=== PATIENT | female | born 1940 | race Caucasian/White ===

== ENCOUNTER 2024-04-06 12:44 | Emergency (ER) | payer MEDICARE ==
[~2024-04-06] VITALS: Ht 154.9 cm; Wt 65.9 kg
[2024-04-06 12:57] VITALS: TEMP 98.1
[2024-04-06 13:29] LABS: BASO # 0.1 K/mm3 (0.0-0.2); BASO % 0.4 % (0.0-2.0); EOS # 0.4 K/mm3 (0.0-0.7); EOS % 2.5 % (0.0-4.0); GRAN # 10.9 K/mm3 (1.4-6.5); GRAN % 77.5 % (42.2-75.2); HEMATOCRIT 38.3 % (37.0-47.0); HEMOGLOBIN 12.2 g/dl (12.5-16.0); LYMPH # 1.4 K/mm3 (1.2-3.4); LYMPH % 10.1 % (20.0-51.0); MEAN CELL VOLUME 93 fl (80.0-100.0); MEAN CORPUSCULAR HEMOGLOBIN 30 pg (27-31); MEAN CORPUSCULAR HGB CONC 32 g/dl (33.0-37.0); MEAN PLATELET VOLUME 10.7 fl (7.4-10.4); MONO # 1.3 K/mm3 (0.1-0.6); MONO % 8.9 % (1.7-9.3); PLATELET COUNT 300 K/mm3 (130-400); RED BLOOD COUNT 4.13 M/mm3 (4.10-5.30); REDCELL DISTRIBUTION WIDTH-CV 14.2 % (11.5-14.5)
[2024-04-06] MEDS ORDERED: Budesonide Neb Susp 0.5 MG/2 ML AMP IH ONE (13:30)
[2024-04-06] MEDS ORDERED: Albuterol/Ipratropium 3 MG-0.5 MG/3 ML Neb Soln IH ONE (13:30)
[2024-04-06] MEDS ORDERED: methylPREDNISolone Sod Succ 125 MG/2 ML VIAL IV ONE (13:30)
[2024-04-06 13:45] LABS: ALBUMIN 3.6 g/dL (3.4-4.8); BILIRUBIN,TOTAL 0.4 mg/dL (0.2-1.2); CALCIUM 9.9 mg/dL (8.4-10.2); CREATININE, serum 1.14 mg/dL (0.57-1.11); POTASSIUM 4.4 mEq/L (3.5-4.5); TOTAL PROTEIN 7.1 g/dl (6.2-8.1)
[2024-04-06 13:51] LABS: TROPONIN-I 0.014 ng/mL (0.00-0.033)
[2024-04-06 15:43] LABS: COLLECTION METHOD CLEAN CATCH
[2024-04-06 15:52] LABS: PH 7.5 (5.0-8.5); URINE APPEARANCE CLEAR (CLEAR/HAZY); URINE BLOOD NEGATIVE (NEGATIVE); URINE COLOR YELLOW (YELLOW); URINE GLUCOSE NEGATIVE (NEGATIVE); URINE KETONE NEGATIVE (NEGATIVE); URINE NITRATE NEGATIVE (NEGATIVE); URINE PROTEIN(semi-quant) NEGATIVE (NEGATIVE); URINE UROBILINOGEN 0.2 E.U/dL (0.2-1.0)
[2024-04-06] MEDS ORDERED: IPRATROPIUM BROM3 M1 IH (15:53)
[2024-04-06] MEDS ORDERED: PREDNISONE20 MG PO (15:53)
[2024-04-06] MEDS ORDERED: CIPRO 500MG TA500 MG PO (15:53)
[2024-04-06 16:16] VITALS: BP 128/66; PULSE 82
== END 2024-04-06 16:16 | disposition home or self-care (01) ==
LOC: COL.ER 12:44
PROVIDERS: Family Medicine
DX: J44.89 Other specified chronic obstructive pulmonary disease (principal); Z91.148 Patient's other noncompliance with medication regimen for other reason
CPT/HCPCS: J2919